=== PATIENT | female | born 1950 | race Caucasian/White ===

== ENCOUNTER 2017-07-03 22:48 | Emergency (ER) | payer OTHER ==
[~2017-07-03] VITALS: Ht 165.1 cm; Wt 127.4 kg
[2017-07-04] MEDS ORDERED: ATARAX,VISTARIL25 MG PO (00:12)
[2017-07-04] MEDS ORDERED: PREDNISONE20 MG PO (00:12)
[2017-07-04] MEDS ORDERED: AQUAPHOR OINTM105 GM TP (00:12)
[2017-07-04 00:29] VITALS: BP 177/89
== END 2017-07-04 00:31 | disposition home or self-care (01) ==
LOC: EME 22:48
DX: L25.9 Unspecified contact dermatitis, unspecified cause (principal); L85.3 Xerosis cutis; M10.9 Gout, unspecified; E11.9 Type 2 diabetes mellitus without complications; I25.10 Atherosclerotic heart disease of native coronary artery without angina pectoris; Z87.891 Personal history of nicotine dependence; K21.9 Gastro-esophageal reflux disease without esophagitis; I10 Essential (primary) hypertension
CPT/HCPCS: 99281; 99284; J7512; Q0177

== ENCOUNTER 2017-09-18 16:11 | Emergency (ER) | payer OTHER ==
[~2017-09-18] VITALS: Ht 165.1 cm; Wt 126.8 kg
[~2017-09-18 16:11] MED LIST: AQUAPHOR OINTM105 GM TP; ATARAX,VISTARIL25 MG PO; PREDNISONE20 MG PO
[2017-09-18 17:16] LABS: HEMATOCRIT 37.4 % (36.0-46.0); HEMOGLOBIN 12.1 G/DL (11.9-15.5); MCHC 32.4 G/DL (30.0-36.0); MCV 92.8 FL (83-99); PLATELET COUNT 173 K/uL (156-360); RBC DIS.WIDTH-CV 14.4 % (11.8-14.6); RBC DIS.WIDTH-SD 49.6 % (39-53); RED BLOOD COUNT 4.03 M/uL (3.80-5.20); WHITE BLOOD COUNT 8.3 K/uL (4.1-10.2)
[2017-09-18 17:48] LABS: ALBUMIN 3.5 G/DL (3.2-4.8); CHLORIDE 103 MEQ/L (99-109); POTASSIUM 3.7 MEQ/L (3.7-5.4); SODIUM 139 MEQ/L (136-147); TOTAL BILIRUBIN 0.6 MG/DL (0.0-1.0)
[2017-09-18 18:15] LABS: GLUCOSE 120 mg/dL (70-99); UREA NITROGEN (BUN) 14 mg/dL (9-23)
[2017-09-18 18:16] LABS: ALKALINE PHOSPHATASE 77 IU/L (3-129); ALT (GPT) 19 IU/L (3-49); AST (GOT) 21 IU/L (2-34); CREATININE 0.7 MG/DL (0.6-1.3); GFR ESTIMATE (CALCULATED) > 59 mL/min/; TOTAL PROTEIN 7.2 G/DL (6.4-8.3)
[2017-09-18 18:31] LABS: LIPASE < 3.0 U/L (1.0-51.0)
[2017-09-18 19:06] LABS: APPEARANCE CLEAR ((CLEAR)); BILIRUBIN NEGATIVE; BLOOD NEGATIVE; COLOR YELLOW ((YELLOW)); GLUCOSE (STRIP) NEGATIVE; KETONES NEGATIVE; LEUKOCYTES NEGATIVE; NITRITE NEGATIVE; PROTEIN (STRIP) NEGATIVE; SPECIFIC GRAVITY 1.024 (1.000-1.030); UCUL ADDED? NO
[2017-09-18] MEDS ORDERED: CIPRO500 MG PO (23:15)
[2017-09-18] MEDS ORDERED: FLAGYL500 MG PO (23:15)
[2017-09-18] MEDS ORDERED: ZOFRAN ODT4 MG PO (23:15)
[2017-09-18 23:37] VITALS: BP 114/56
== END 2017-09-18 23:38 | disposition home or self-care (01) ==
LOC: EME 16:11
DX: K57.92 Diverticulitis of intestine, part unspecified, without perforation or abscess without bleeding (principal); R11.0 Nausea; K21.9 Gastro-esophageal reflux disease without esophagitis; I25.10 Atherosclerotic heart disease of native coronary artery without angina pectoris; I10 Essential (primary) hypertension; E11.9 Type 2 diabetes mellitus without complications; Z87.891 Personal history of nicotine dependence
CPT/HCPCS: 74177; 80053; 81003; 83690; 85027; 99281; 99284; J2405; J7030

== ENCOUNTER 2018-01-02 01:19 | Emergency (ER) | payer OTHER ==
[~2018-01-02] VITALS: Ht 167.6 cm; Wt 125.0 kg
[~2018-01-02 01:19] MED LIST changes: +CIPRO500 MG PO; +FLAGYL500 MG PO; +ZOFRAN ODT4 MG PO
[2018-01-02] MEDS ORDERED: PERCOCET 5/31 TABLET PO (02:35)
[2018-01-02] MEDS ORDERED: NAPROSYN500 MG PO (02:35)
[2018-01-02 03:22] VITALS: BP 114/60
== END 2018-01-02 03:22 | disposition home or self-care (01) ==
LOC: EME 01:19
PROC: 2W3QX1Z Immobilization of Right Lower Leg using Splint (ICD-10-PCS; principal; 2018-01-02)
DX: S82.831A Other fracture of upper and lower end of right fibula, initial encounter for closed fracture (principal); W01.0XXA Fall on same level from slipping, tripping and stumbling without subsequent striking against object, initial encounter; X50.1XXA Overexertion from prolonged static or awkward postures, initial encounter; Z87.891 Personal history of nicotine dependence
CPT/HCPCS: 73610; 99281; 99284